=== PATIENT | female | born 2000 | race African-American/Black ===

== ENCOUNTER 2019-06-13 21:49 | Emergency (ER) | payer OTHER ==
[~2019-06-13] VITALS: Ht 157.5 cm; Wt 49.9 kg
[2019-06-13 22:08] VITALS: BP 132/91
== END 2019-06-14 00:39 | disposition left against medical advice (07) ==
LOC: ER 21:53
DX: S01.111A Laceration without foreign body of right eyelid and periocular area, initial encounter (principal); Z53.21 Procedure and treatment not carried out due to patient leaving prior to being seen by health care provider; W18.39XA Other fall on same level, initial encounter; Y93.89 Activity, other specified; Y92.89 Other specified places as the place of occurrence of the external cause; Y99.8 Other external cause status

== ENCOUNTER 2021-07-09 03:54 | Emergency (ER) | payer OTHER ==
[~2021-07-09] VITALS: Ht 162.6 cm; Wt 55.5 kg
[2021-07-09 03:54] VITALS: BP 118/68
[2021-07-09] MEDS ORDERED: LORazepam 2MG/ML-1ML VIAL IV ONE (04:45)
[2021-07-09 05:30] LABS: Salicylate 5.2 mg/dL (2.8-20.0)
[2021-07-09 05:31] LABS: Albumin 4.2 g/dL (3.4-5.0); BUN/Creatinine Ratio 8.2; Calcium 8.7 mg/dL (8.5-10.1); Magnesium 2.7 mg/dL (1.6-2.6); Potassium 3.9 mmol/L (3.5-5.1)
[2021-07-09 05:33] LABS: Bilirubin, Total 0.3 mg/dL (0.2-1.0); Total Protein 8.4 g/dL (6.4-8.2)
[2021-07-09 05:35] LABS: Acetaminophen < 2.0 ug/mL (10-30)
== END 2021-07-09 06:03 | disposition left against medical advice (07) ==
LOC: ER 03:54 → EDBD 03:54 → ER 05:39
DX: F10.129 Alcohol abuse with intoxication, unspecified (principal); Z53.21 Procedure and treatment not carried out due to patient leaving prior to being seen by health care provider; Y90.9 Presence of alcohol in blood, level not specified
CPT/HCPCS: 36415; 80053; 80320; 80329; 83735; J2060

== ENCOUNTER 2021-07-09 08:58 | Emergency (ER) | payer OTHER ==
[~2021-07-09] VITALS: Ht 165.1 cm; Wt 54.4 kg
[2021-07-09 09:09] VITALS: BP 140/76
== END 2021-07-09 09:48 | disposition left against medical advice (07) ==
LOC: EDBD 08:58 → EDUNIT# 08:58 → ER 08:58
DX: F10.129 Alcohol abuse with intoxication, unspecified (principal); Z53.21 Procedure and treatment not carried out due to patient leaving prior to being seen by health care provider; Y90.9 Presence of alcohol in blood, level not specified

== ENCOUNTER 2021-12-04 23:17 | Emergency (ER) | payer SELFPAY ==
[~2021-12-04] VITALS: Ht 160 cm; Wt 56.7 kg
[2021-12-04 23:53] VITALS: BP 130/88
== END 2021-12-05 01:12 | disposition left against medical advice (07) ==
LOC: EDBD 23:17 → ER 23:25
DX: S61.511A Laceration without foreign body of right wrist, initial encounter (principal); R45.851 Suicidal ideations; Z53.29 Procedure and treatment not carried out because of patient's decision for other reasons; X78.9XXA Intentional self-harm by unspecified sharp object, initial encounter; Y93.89 Activity, other specified; Y92.89 Other specified places as the place of occurrence of the external cause; Y99.8 Other external cause status